=== PATIENT | female | born 1960 | race Caucasian/White ===

== ENCOUNTER 2022-12-03 06:18 | Day surgery (SDC) | payer BC ==
[2022-12-01 16:05] VITALS: BMI 25.6
[~2022-12-03 06:18] MED LIST: Bupivacaine PF 0.5% 30 ML VIAL ONE
[2022-12-03] MEDS ORDERED: Ferric Subsulfate (ASTRINGYN) 8 GM VIAL ONE (06:19)
[2022-12-03] MEDS ORDERED: fentaNYL 50 mcg/mL 1 mL Vial ONE (06:51)
[2022-12-03] MEDS ORDERED: PROPOFOL 40 ML ONE (06:51)
[2022-12-03] MEDS ORDERED: Midazolam HCl 2 mg/2 ml Vial ONE (06:51)
[2022-12-03] MEDS ORDERED: Dexamethasone 4 mg/ml Vial ONE (06:52)
[2022-12-03] MEDS ORDERED: Ondansetron PF 4 MG/2 ML Vial ONE (06:52)
[2022-12-03] MEDS ORDERED: Lidocaine 2% PF 5 ML VIAL ONE (06:52)
[2022-12-03] MEDS ORDERED: CEFAZOLIN 1 GM VIAL ONE (06:57)
[2022-12-03 06:58] LABS: Hematocrit 39.7 % (34.9-44.5); Hemoglobin 13.3 g/dL (12.0-15.5); Mean Corpuscular HGB CONC 33.5 g/dL (32.0-36.0); Mean Corpuscular Hemoglobin 32.7 pg (27.0-33.0); Mean Corpuscular Volume 97.5 fl (81.6-98.3); Mean Platelet Volume 9.9 fl (7.4-10.4); Platelet Count 195 10x3/uL (150-450); RBC Distribution Width 13.3 % (11.5-14.5); Red Blood Cell (RBC) Count 4.07 10x6/uL (3.90-5.03); White Blood Cell (WBC) Count 5.8 10x3/uL (3.5-10.5)
[2022-12-03 07:15] LABS: Anion Gap 16 mmol/L (10-20); BUN (Urea Nitrogen) 14 mg/dL (9.8-20.1); Calc. Creatinine Clearance 65 mL/min (70-130); Carbon Dioxide 25 mmol/L (23-31); Chloride 107 mmol/L (98-107); Estimated GFR 73; Glucose 88 mg/dL (80-115); Potassium 3.7 mmol/L (3.5-5.1); Sodium 144 mmol/L (136-145)
== END 2022-12-03 09:20 | disposition home or self-care (01) ==
LOC: CSHSDC 06:18
PROVIDERS: ATTEND Obstetrics & Gynecology
PROC: 0UDB7ZZ Extraction of Endometrium, Via Natural or Artificial Opening (ICD-10-PCS; principal; 2022-12-03)
DX: N88.2 Stricture and stenosis of cervix uteri (principal); N88.8 Other specified noninflammatory disorders of cervix uteri; R87.810 Cervical high risk human papillomavirus (HPV) DNA test positive; R87.619 Unspecified abnormal cytological findings in specimens from cervix uteri; Z88.8 Allergy status to other drugs, medicaments and biological substances; Z88.1 Allergy status to other antibiotic agents; I10 Essential (primary) hypertension; M19.90 Unspecified osteoarthritis, unspecified site; E03.9 Hypothyroidism, unspecified; Z79.890 Hormone replacement therapy; Z79.899 Other long term (current) drug therapy
CPT/HCPCS: 36415; 80048; 85027; 88305; J0690; J1100; J2001; J2250; J2405; J2704; J3010; S0020